=== PATIENT | male | born 1965 | race Caucasian/White ===

== ENCOUNTER 2019-05-02 05:53 | Observation (INO) | payer OTHER ==
[2019-05-01 12:22] VITALS: BMI 33.2
[2019-05-02 06:28] LABS: #Basophils 0.1 thou/uL (0.0-0.2); #Eosinphils 0.3 thou/uL (0.0-0.7); #Lymphocytes 2.8 thou/uL (1.20-3.40); #Monocytes 1.1 thou/uL (0.11-0.59); #Neutrophils 4.9 thou/uL (1.40-6.50); %Eosinophils 3.6 % (0.0-10.0); %Lymphocytes 30.2 % (21.0-51.0); %Monocytes 12.3 % (0.0-10.0); %Neutrophils 52.9 % (42.0-75.0); Hemoglobin 15.8 g/dL (14.0-18.0); Mean Corpuscular HGB CONC 33.1 g/dL (32.0-36.0); Mean Corpuscular Hemoglobin 31.4 pg (27.0-31.0); Mean Corpuscular Volume 94.9 fL (78.0-98.0); Mean Platelet Volume 8.4 fL (7.4-10.4); Platelet Count 191 thou/uL (130-400); RBC Distribution Width 12.1 % (11.5-14.5); Red Blood Cell (RBC) Count 5.02 mill/uL (4.70-6.10); White Blood Cell (WBC) Count 9.2 thou/uL (4.8-10.8)
[2019-05-02] MEDS ORDERED: Sodium Chloride 0.9% 10 ML ONE (06:35)
[2019-05-02 06:47] LABS: Anion Gap 10 mmol/L (10-20); BUN (Urea Nitrogen) 15 mg/dL (8.4-25.7); Calc. Creatinine Clearance 104 mL/min (70-130); Calcium 8.9 mg/dL (7.8-10.44); Carbon Dioxide 25 mmol/L (22-29); Chloride 107 mmol/L (98-107); Estimated GFR-MDRD 65; Glucose 96 mg/dL (70-105); Potassium 4.3 mmol/L (3.5-5.1); Sodium 138 mmol/L (136-145)
[2019-05-02] MEDS ORDERED: Fentanyl 100 MCG/2 ML VIAL ONE ×4 (06:58→10:32)
[2019-05-02] MEDS ORDERED: Midazolam HCl 2 mg/2 ml Vial ONE (07:16)
[2019-05-02] MEDS ORDERED: HYDROmorphone 2 MG/ML VIAL ONE ×2 (07:47→10:27)
[2019-05-02] MEDS ORDERED: Ondansetron HCl/PF 4 MG/2 ML Vial IVP PRN (09:24)
[2019-05-02] MEDS ORDERED: HYDROmorphone 2 MG/ML VIAL SLOW IVP PRN (09:24)
[2019-05-02] MEDS ORDERED: Promethazine HCl 25 MG/ML VIAL IM PRN ×2 (09:24→09:48)
[2019-05-02] MEDS ORDERED: Promethazine HCl 25 MG/ML VIAL SLOW IVP PRN (09:24)
[2019-05-02] MEDS ORDERED: Promethazine HCl 12.5 MG SUPP PR PRN (09:48)
[2019-05-02] MEDS ORDERED: Mag-Al 1200 mg/1200 mg/30 ML UDCUP PO PRN (09:48)
[2019-05-02] MEDS ORDERED: traMADol HCl 50 MG TAB PO PRN ×2 (09:48)
[2019-05-02] MEDS ORDERED: tiZANidine HCl 4 MG TAB PO PRN (09:48)
[2019-05-02] MEDS ORDERED: diphenhydrAMINE 25 MG CAP PO PRN (09:48)
[2019-05-02] MEDS ORDERED: Morphine 4 MG/ML VIAL SLOW IVP PRN (09:48)
[2019-05-02] MEDS ORDERED: HYDROcodone/Acetaminophen 10/325 mg Tablet PO PRN (09:48)
[2019-05-02] MEDS ORDERED: diphenhydrAMINE 50 MG/ML VIAL IVP PRN (09:48)
[2019-05-02] MEDS ORDERED: Milk Of Magnesia 30 ML UDCUP PO PRN (09:48)
[2019-05-02] MEDS ORDERED: Ondansetron PF 4 MG/2 ML Vial IM PRN (09:48)
[2019-05-02] MEDS ORDERED: Scopolamine 1.5 mg/72 hour Patch TD PRN (09:48)
[2019-05-02] MEDS ORDERED: Bisacodyl 10 MG SUPP PR PRN (09:48)
[2019-05-02] MEDS ORDERED: Promethazine 25 MG TAB PO PRN (09:48)
--- NOTE | 2019-05-02 10:35 | OP ---
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 DESCRIPTION OF PROCEDURE: The patient was brought to the operating room and intubated. He was rolled in a prone position on gel-filled chest rolls. An incision was made exposing L4 and L5 and the level was confirmed by x-ray. Then, surgery was extremely difficult given his very large body habitus. We performed complete L5 and inferior L4 laminectomy, completely decompressing the L4-L5 interspace. We next placed pedicle screws at right L4 and right L5 using lateral fluoroscopic guidance. The diana was then secured using screws connected by nuts, which were final tightened. The wound was then extensively irrigated. MAC hemostasis was secured. A combination of demineralized bone matrix and local morselized autograft were laid over the lamina posterolateral surfaces for the purpose of arthrodesis. Vancomycin powder was applied and the wound was then closed in anatomic layers over drain. Job ID: [id number]
[2019-05-02] MEDS ORDERED: Lorazepam 1 MG TAB PO PRN (10:59)
[2019-05-02] MEDS ORDERED: Glycopyrrolate 0.2 MG/ML 5 ML SYRINGE ONE (12:00)
[2019-05-02] MEDS ORDERED: PHENYLEPHRINE-NS 100 MCG/ML 10 ML SYRINGE ONE (12:00)
[2019-05-02] MEDS ORDERED: Dexamethasone 20 MG/5 ML VIAL ONE (12:00)
[2019-05-02] MEDS ORDERED: Rocuronium Bromide 10 MG/ML (10ML VIAL) ONE (12:00)
[2019-05-02] MEDS ORDERED: Ondansetron PF 4 MG/2 ML Vial ONE (12:00)
[2019-05-02] MEDS ORDERED: PROPOFOL 200 MG/20 ML VIAL ONE (12:00)
[2019-05-02] MEDS ORDERED: ePHEDrine 50 MG/ML VIAL ONE (12:00)
[2019-05-02] MEDS ORDERED: Lidocaine 1% PF 5 ML VIAL ONE (12:00)
[2019-05-02] MEDS ORDERED: HYDROcodone/Acetaminophen 7.5/325 mg Tablet PO PRN (12:22)
[2019-05-02] MEDS: Nicotine 21 MG PATCH TD SCH ×2 (13:20→13:21)
[2019-05-02] MEDS: Gabapentin 300 MG CAP PO SCH ×2 (13:20→20:36)
[2019-05-02] MEDS: tiZANidine HCl 4 MG TAB PO SCH ×2 (13:20→20:34)
[2019-05-02] MEDS: CEFAZOLIN 2 GM in Premix Bag 1 BAG IVPB SCH ×2 (13:21→21:29)
[2019-05-02] MEDS: HYDROcodone/Acetaminophen 10/325 mg Tablet PO PRN ×2 (14:36→20:34)
[2019-05-02] MEDS: Sodium Chloride 0.9% 1,000 ML IV SCH ×2 (14:50→23:45)
--- NOTE | 2019-05-02 16:54 | EKG ---
Test Reason : PREOP Blood Pressure : / mmHG Vent. Rate : 062 BPM Atrial Rate : 062 BPM P-R Int : 146 ms QRS Dur : 096 ms QT Int : 402 ms P-R-T Axes : 030 -06 032 degrees QTc Int : 408 ms Normal sinus rhythm Normal ECG No previous ECGs available Confirmed by OLIVIA GARCIA ([id number]) on 05/02/2019 4:53:29 PM Referred By: MICHELLE Confirmed By:OLIVIA GARCIA
[2019-05-02] MEDS: Atorvastatin Calcium 40 MG TAB PO SCH (20:36)
[2019-05-03] MEDS: HYDROcodone/Acetaminophen 10/325 mg Tablet PO PRN ×4 (04:30→20:20)
[2019-05-03] MEDS: Tamsulosin HCl 0.4 MG CAP PO SCH (05:32)
[2019-05-03] MEDS: CEFAZOLIN 2 GM in Premix Bag 1 BAG IVPB SCH ×3 (05:32→20:15)
[2019-05-03] MEDS: Sodium Chloride 0.9% 1,000 ML IV SCH ×2 (08:52→20:22)
[2019-05-03] MEDS: tiZANidine HCl 4 MG TAB PO SCH ×3 (08:54→20:16)
[2019-05-03] MEDS: Gabapentin 300 MG CAP PO SCH ×3 (08:54→20:16)
--- NOTE | 2019-05-03 09:21 | PRG ---
DATE OF SERVICE: 05/03/2019 SUBJECTIVE: The patient is postoperative day #1 status post his lumbar L4-L5 decompression and fusion. Following the surgery, he was transitioned to the Med/Surg floor, where his pain has been well controlled with p.o. medications, he is tolerating a regular diet, and he is voiding appropriately. He did have a ADY drain placed intraoperatively and had approximately 110 mL out overnight. OBJECTIVE: On exam this morning, patient is sitting up comfortably in no acute distress. He has free active range of motion of all extremities. No focal motor weakness. There is a small amount of bright red blood in the ADY bulb. PLAN: We will continue to monitor his ADY output and if it trends down, he may be able to be discontinued this afternoon or in the morning. We will continue to mobilize appropriately and I anticipate home either this afternoon or tomorrow. Job ID: [id number] MTDD
[2019-05-03] MEDS: Atorvastatin Calcium 40 MG TAB PO SCH (20:16)
[2019-05-04] MEDS: HYDROcodone/Acetaminophen 10/325 mg Tablet PO PRN ×3 (00:09→09:49)
[2019-05-04] MEDS: CEFAZOLIN 2 GM in Premix Bag 1 BAG IVPB SCH (05:29)
[2019-05-04] MEDS: Tamsulosin HCl 0.4 MG CAP PO SCH (05:29)
[2019-05-04] MEDS: Gabapentin 300 MG CAP PO SCH (08:59)
[2019-05-04] MEDS: tiZANidine HCl 4 MG TAB PO SCH (08:59)
--- NOTE | 2019-05-04 11:10 | DIS ---
DATE OF ADMISSION: 05/02/2019 DATE OF DISCHARGE: 05/04/2019 The patient is a 53-year-old male, who underwent L3 through L5 laminectomy, L4 through L5 fusion on 05/02/2019. Following the surgery, the patient was transitioned to the Med/Surg floor, where his pain has been well-controlled with p.o. medications, he is tolerating a regular diet, and he is voiding appropriately. He did have ADY drain placed intraoperatively and this trended down over the next 2 days. On postoperative day #2, the overnight output was 80 mL overnight. The color has decreased from dark red blood to more of a serosanguineous color. The patient is otherwise doing well. He has minimal pain. He is walking well in the hallways. We will plan to remove the ADY drain and dismiss the patient to home. I have discussed home care precautions. We will follow up with the patient in 2 weeks. I have provided him with scripts of [place], Zanaflex, and Keflex. Job ID: [id number]
[2019-05-04 11:58] VITALS: BP 123/72; TEMP 97.4
== END 2019-05-04 11:35 | disposition home or self-care (01) ==
LOC: SDC 05:53 → SURG B 10:15
PROVIDERS: ADMIT Neurological Surgery; ATTEND Neurological Surgery
PROC: 0SG0071 Fusion of Lumbar Vertebral Joint with Autologous Tissue Substitute, Posterior Approach, Posterior Column, Open Approach (ICD-10-PCS; principal; 2019-05-02)
DX: M47.816 Spondylosis without myelopathy or radiculopathy, lumbar region (principal); I10 Essential (primary) hypertension; E78.5 Hyperlipidemia, unspecified
CPT/HCPCS: 36415; 76000; 80048; 85025; 93005; 93010; 96365; 96366; 96376; C1713; C1768; G0378; J0690; J1100; J1170; J2001; J2250; J2405; J2704; J3010; J3370; J3490

== ENCOUNTER 2019-05-17 10:11 | Outpatient (CLI) | payer OTHER ==
--- NOTE | 2019-05-17 10:35 | RAD ---
TWO VIEWS LUMBAR SPINE: HISTORY: Follow-up surgery. Lumbar radiculopathy. FINDINGS: Five lumbar-type vertebrae. Unilateral right-sided transpedicular screw at L4 and L5. No periarticula r lucency. Moderate degenerative change at L4-L5 and L5-S1. Laminectomy defect at L4 and L5. Mild loss of disc space height and osteophyte formation of the distal thoracic spine and upper lumbar spine. IMPRESSION: Uncomplicated lumbar fusion at L4-L5. Transcribed Date/Time: 05/17/2019 11:17 AM
== END 2019-05-17 10:12 | disposition home or self-care (01) ==
LOC: TBSIIMAG 10:11
PROVIDERS: ATTEND Neurological Surgery
DX: M54.16 Radiculopathy, lumbar region (principal); Z98.1 Arthrodesis status
CPT/HCPCS: 72100

== ENCOUNTER 2019-07-11 13:46 | Outpatient (CLI) | payer OTHER ==
--- NOTE | 2019-07-11 14:49 | RAD ---
LUMBAR SPINE TWO VIEWS: 07/11/2019 HISTORY: Evaluate lumbar spine following surgery, radiculopathy. COMPARISON: 05/17/2019 FINDINGS: L4 and L5 right sided pedicle screws present with a vertically oriented interlocking diana. The patient appears status post bilateral laminectomy at L4-L5. No evidence for hardware failure. There is disk space narrowing with degenerative endplate change as well as anterior and posterior ost eophyte formation at L4-L5 and L5-S1. Multilevel lower lumbar spine facet hypertrophy is present. There is disk space narrowing with disk desiccation and anterior osteophyte formation at T11-T12 and at T12-L1. No acute fracture noted. IMPRESSION: Stable degenerative and postoperative changes within the lumbar spine, as above. POS: [facility]
== END 2019-07-11 13:47 | disposition home or self-care (01) ==
LOC: TBSIIMAG 13:46
PROVIDERS: ATTEND Neurological Surgery
DX: M47.26 Other spondylosis with radiculopathy, lumbar region (principal); Z98.890 Other specified postprocedural states
CPT/HCPCS: 72100

== ENCOUNTER 2021-04-27 16:04 | Outpatient (CLI) | payer OTHER ==
[2021-04-27 16:48] LABS: Hemoglobin 15.8 g/dL (13.5-17.5); Mean Corpuscular HGB CONC 33.7 g/dL (32.0-36.0); Mean Corpuscular Hemoglobin 31.3 pg (27.0-33.0); Mean Corpuscular Volume 92.9 fl (81.2-95.1); Mean Platelet Volume 10.8 fl (7.4-10.4); Platelet Count 200 10x3/uL (150-450); RBC Distribution Width 13.2 % (11.5-14.5); Red Blood Cell (RBC) Count 5.05 10x6/uL (4.32-5.72); White Blood Cell (WBC) Count 11.2 10x3/uL (3.5-10.5)
[2021-04-27 17:09] LABS: Anion Gap 12 mmol/L (10-20); BUN (Urea Nitrogen) 14 mg/dL (8.4-25.7); Calc. Creatinine Clearance 0 mL/min (70-130); Calcium 9.3 mg/dL (7.8-10.44); Carbon Dioxide 24 mmol/L (22-29); Chloride 109 mmol/L (98-107); Glucose 101 mg/dL (70-105); Sodium 141 mmol/L (136-145)
[2021-04-28 08:17] LABS: SARS-CoV-2 PCR by NAA Not Detected (NotDetected)
== END 2021-04-27 16:05 | disposition home or self-care (01) ==
LOC: LABBT 16:04
PROVIDERS: ATTEND Neurological Surgery
DX: Z01.818 Encounter for other preprocedural examination (principal); Z20.822 Contact with and (suspected) exposure to COVID-19
CPT/HCPCS: 80048; 85027; 93005; 93010; U0003; U0005

== ENCOUNTER 2021-04-30 06:24 | Observation (INO) | payer OTHER ==
[2021-04-30] MEDS ORDERED: ceFAZolin 2 GM/DEX 5% 100 ML BAG ONE (06:32)
[2021-04-30] MEDS ORDERED: Midazolam HCl 2 mg/2 ml Vial ONE ×2 (06:33→07:06)
[2021-04-30] MEDS ORDERED: Fentanyl 100 MCG/2 ML VIAL ONE ×5 (06:33→09:54)
[2021-04-30] MEDS ORDERED: Dexamethasone 20 MG/5 ML VIAL ONE (07:19)
[2021-04-30] MEDS ORDERED: Ondansetron PF 4 MG/2 ML Vial ONE (07:19)
[2021-04-30] MEDS ORDERED: Glycopyrrolate 0.2 MG/ML 5 ML SYRINGE ONE (07:19)
[2021-04-30] MEDS ORDERED: Lidocaine 1% PF 5 ML VIAL ONE (07:19)
[2021-04-30] MEDS ORDERED: PHENYLEPHRINE-NS 100 MCG/ML 10 ML SYRINGE ONE (07:19)
[2021-04-30] MEDS ORDERED: Ketorolac Tromethamine 30 MG/ML VIAL ONE (07:19)
[2021-04-30] MEDS ORDERED: PROPOFOL 200 MG/20 ML VIAL ONE (07:19)
[2021-04-30] MEDS ORDERED: Rocuronium Bromide 10 MG/ML (10ML VIAL) ONE (07:19)
[2021-04-30] MEDS ORDERED: HYDROmorphone 0.5 MG/0.5 ML SYRINGE ONE ×2 (09:07→09:29)
[2021-04-30] MEDS ORDERED: Non-Formulary Medication 1 EACH PO PRN (09:50)
[2021-04-30] MEDS ORDERED: HYDROmorphone 2 MG/ML VIAL SLOW IVP PRN (10:00)
[2021-04-30] MEDS ORDERED: Acetaminophen/Codeine 30-300mg Tablet PO PRN ×2 (10:00)
[2021-04-30] MEDS ORDERED: Morphine 2 MG/ML VIAL SLOW IVP PRN (10:00)
[2021-04-30] MEDS ORDERED: Scopolamine 1.5 mg/72 hour Patch TD PRN (10:00)
[2021-04-30] MEDS ORDERED: diphenhydrAMINE 25 MG CAP PO PRN (10:00)
[2021-04-30] MEDS ORDERED: Milk Of Magnesia 30 ML UDCUP PO PRN (10:00)
[2021-04-30] MEDS ORDERED: tiZANidine HCl 4 MG TAB PO PRN (10:00)
[2021-04-30] MEDS ORDERED: traMADol HCl 50 MG TAB PO PRN (10:00)
[2021-04-30] MEDS ORDERED: diphenhydrAMINE 50 MG/ML VIAL IVP PRN (10:00)
[2021-04-30] MEDS ORDERED: Mag-Al 1200 mg/1200 mg/30 ML UDCUP PO PRN (10:00)
[2021-04-30] MEDS ORDERED: Ondansetron HCl/PF 4 MG/2 ML Vial IVP PRN (10:00)
[2021-04-30] MEDS ORDERED: Ondansetron PF 4 MG/2 ML Vial IM PRN (10:00)
[2021-04-30] MEDS ORDERED: Promethazine HCl 25 MG/ML VIAL IM/IV PRN (10:00)
[2021-04-30] MEDS: traMADol HCl 50 MG TAB PO PRN ×2 (12:25→18:26)
[2021-04-30] MEDS ORDERED: CEFAZOLIN 2 GM in Premix Bag 1 BAG IVPB SCH (14:00)
[2021-04-30] MEDS: Sodium Chloride 0.9% 1,000 ML IV SCH (15:00)
[2021-04-30 17:48] VITALS: BMI 38.7
[2021-04-30] MEDS ORDERED: ceFAZolin Sodium/D5W 2 GM in Premix Bag 1 BAG IVPB SCH (22:00)
[2021-04-30] MEDS: Morphine 4 MG/ML VIAL SLOW IVP PRN (22:39)
[2021-05-01] MEDS: Sodium Chloride 0.9% 1,000 ML IV SCH (01:08)
[2021-05-01] MEDS: Morphine 4 MG/ML VIAL SLOW IVP PRN ×2 (05:44→10:46)
[2021-05-01] MEDS ORDERED: Tamsulosin HCl 0.4 MG CAP PO SCH (06:00)
[2021-05-01 08:33] VITALS: BP 136/80; TEMP 97.7
[2021-05-01] MEDS ORDERED: FLU VACC QS2021-22(6MOS UP)/PF 60 MCG/0.5 ML SYRINGE IM ONE (09:00)
== END 2021-05-01 11:50 | disposition home or self-care (01) ==
LOC: SDC 06:24 → SURG A 10:46
PROVIDERS: ADMIT Neurological Surgery; ATTEND Neurological Surgery
PROC: 0SG1071 Fusion of 2 or more Lumbar Vertebral Joints with Autologous Tissue Substitute, Posterior Approach, Posterior Column, Open Approach (ICD-10-PCS; principal; 2021-04-30)
DX: M51.16 Intervertebral disc disorders with radiculopathy, lumbar region (principal); M48.062 Spinal stenosis, lumbar region with neurogenic claudication; Z79.899 Other long term (current) drug therapy
CPT/HCPCS: 76000; 96374; 96375; 96376; C1713; C1768; G0378; J0690; J1100; J1170; J1885; J2250; J2270; J2405; J2704; J3010; J3370; J7050